=== PATIENT | male | born 1980 | race Caucasian/White ===

== ENCOUNTER 2018-04-27 10:05 | Emergency (ER) | payer OTHER ==
[~2018-04-27] VITALS: Ht 167.6 cm; Wt 73.0 kg
[2018-04-27 10:22] VITALS: BP 140/90
--- NOTE | 2018-04-27 10:30 | NUR ---
37Y/M BIB SELF WITH C/O PRODUCTIVE COUGH, SORE THROAT, BACK PAIN WHEN COUGHING X 6 DAYS. TOOK IBUPROFEN LAST NIGHT AND TERAFLU THIS MORNING WITH NO RELIEF. PT IS AAOX4, EVEN AND UNLABORED BREATHING, VSS AT THIS TIME, BED DOWN, LOCKED, BEDRAIL UP X 1, ER MD AWARE AND NOTIFIED. HX; DENIES RX; DENIES
--- NOTE | 2018-04-27 11:25 | NUR ---
Patient being evaluated by physician at bedside.
[2018-04-27 11:55] VITALS: BP 117/65
--- NOTE | 2018-04-27 11:55 | NUR ---
Patient discharged with v/s stable. Written and verbal after care instructions given and explained. Patient alert, oriented and verbalized understanding of instructions. Ambulatory with steady gait. All questions addressed prior to discharge. ID band removed. Patient advised to follow up with PMD. Rx of Promethazine given. Patient educated on indication of medication including possible reaction and side effects. Opportunity to ask questions provided and answered.
== END 2018-04-27 11:55 | disposition home or self-care (01) ==
LOC: MED 10:05
DX: J06.9 Acute upper respiratory infection, unspecified (principal)
CPT/HCPCS: 36415; 87804; 99283

== ENCOUNTER 2019-02-10 20:12 | Inpatient (IN) | payer OTHER ==
[~2019-02-10] VITALS: Ht 165.1 cm; Wt 72.6 kg
[2019-02-10 20:21] VITALS: BP 151/97
--- NOTE | 2019-02-10 20:24 | NUR ---
38Y/O M C/O LT-SIDED CP X TODAY THAT STARTED WHEN HE WAS WALKING. NO RADIATION OF PAIN. DENIES N/V. PAIN WORSE WITH DEEP BREATHING. DENIES SOB. PT. A/O X4 FOLLOWS COMMANDS; BREATHING UNLABORED AND SYMMETRICAL; NO SIGNS OF DISTRESS. PULSES +3. NO EDEMA; HR: 86. PAIN IS AN 8/10 CONTINUOUS ACUTE PAIN. PER PATIENT, " THE PAIN HAS LASTED FOR MORE THAN 1 HOUR". PATIENT ALSO TOOK HIS HTN MEDICATION THIS MORNING PRESCRIBED BUT HAS NOT TAKEN IS DIABETES MEDICATION. ERMD MADE AWARE OF STATUS. AT BEDSIDE. PLACED ON MONITOR. WILL CONTINUE TO MONITOR. HX- PRE-DM, HYPERCHOL, HTN RX- DOESN'T RECALL NKA
--- NOTE | 2019-02-10 20:27 | NUR ---
PT TAKEN TO BED 3
--- NOTE | 2019-02-10 21:02 | NUR ---
Dr. Polk examining patient.
[2019-02-10] MEDS ORDERED: NITROGLYCERIN 2% 1 GM PKT TP ONE (21:05)
[2019-02-10] MEDS ORDERED: MORPHINE SULFATE 4 MG/ML SYR IVP ONE (21:05)
--- NOTE | 2019-02-10 21:27 | NUR ---
X-Ray at bedside.
[2019-02-10 21:31] LABS: BASOPHILS % (AUTO) 0.7 % (0.0-2.0); EOSINOPHILS # (AUTO) 0.1 K/uL (0-0.4); EOSINOPHILS % (AUTO) 0.9 % (0.0-4.0); HEMATOCRIT 42.2 % (36-52); HEMOGLOBIN 14.2 g/dL (12.0-18.0); LYMPHOCYTES # (AUTO) 2.6 K/uL (2.0-11.5); LYMPHOCYTES % (AUTO) 38.3 % (20.5-51.1); MEAN CORPUSCULAR HEMOGLOBIN 30 pg (27-31); MEAN CORPUSCULAR HGB CONC 34 g/dL (33-37); MEAN CORPUSCULAR VOLUME 90.7 fL (80-94); MONOCYTES # (AUTO) 0.5 K/uL (0.8-1.0); MONOCYTES % (AUTO) 7.8 % (1.7-9.3); NEUTROPHILS # (AUTO) 3.6 K/uL (1.8-7.7); NEUTROPHILS % (AUTO) 52.3 % (42.2-75.2); PLATELET COUNT (AUTO) 253 K/uL (140-450); RED BLOOD CELL COUNT(AUTO) 4.66 MIL/uL (4.20-6.10); RED CELL DISTRIBUTION WIDTH 12.6 % (11.6-13.7); WHITE BLOOD COUNT (AUTO) 6.9 K/uL (4.8-10.8)
[2019-02-10 21:55] LABS: ANION GAP 14.6 (8-16); CARBON DIOXIDE 25.9 mmol/L (21-32); POTASSIUM 3.5 mmol/L (3.5-5.1)
[2019-02-10 21:56] LABS: ALBUMIN 3.8 g/dL (3.4-5.0); CREATININE 0.7 mg/dL (0.7-1.3); TOTAL BILIRUBIN 0.3 mg/dL (0.0-1.0)
--- NOTE | 2019-02-10 23:08 | NUR ---
PATIENT IS IN NO DISTRESS AT THIS TIME. WILL CONTINUE TO MONITOR. VSS.
[2019-02-10] MEDS ORDERED: BENA1TAB PO (23:26)
[2019-02-10] MEDS ORDERED: METF500T PO (23:26)
[2019-02-10] MEDS ORDERED: ATOR20TA40 PO (23:33)
[2019-02-10] MEDS ORDERED: VITD1000 PO (23:33)
--- NOTE | 2019-02-11 00:06 | NUR ---
PATIENT IN NO DISTRESS AT THIS TIME. WILL CONTINUE TO MONITOR.
--- NOTE | 2019-02-11 00:56 | NUR ---
RECEIVED PATIENT VIA GURNEY FROM ED. BEDSIDE REPORT GIVEN FROM ED NURSE BRIAN. PATIENT IS AMBULATORY. AOX4. NO SOB OR DISTRESS NOTED. IV ACCESS ON RIGHT AC 20 GAUGE SALINE LOCK, PATENT AND INTACT. MRSA SWAB DONE. SKIN INTACT. INITIAL ASSESSMENT DONE. VITAL SIGNS TAKEN. BOARD UPDATED. BELONGINGS CHECKED AND PUT IN BAG. ORIENT PATIENT TO ROOM, BED AND CALL LIGHT. ALL SAFETY PRECAUTIONS MET. CALL LIGHT WITHIN PATIENT REACH. WILL CONTINUE TO MONITOR.
--- NOTE | 2019-02-11 00:56 | NUR ---
Patient will be admitted to care of DR. CAMPBELL. Admited to TELE. Will go to room 106 B. Belongings list completed. Report to AUSTIN ARDON RN.
--- NOTE | 2019-02-11 01:37 | NUR ---
PAGED FOR DOCTOR SHANNAN. SPOKE TO DR. SULLIVAN. ORDERS RECEIVED AND WILL PUT IN ORDERS. WILL CONTINUE WITH ORDERS.
[2019-02-11] MEDS ORDERED: DEXTROSE 50% 50 ML SYR IVP PRN (01:50)
[2019-02-11] MEDS ORDERED: INSULIN LISPRO SLIDING SCALE 100 UNITS/ML VIAL SUBQ PRN (01:50)
--- NOTE | 2019-02-11 02:04 | NUR ---
LEFT VOICEMAIL MESSAGE FOR DONAVON, PER PATIENT REQUEST.
--- NOTE | 2019-02-11 02:08 | NUR ---
ROUNDS DONE. PATIENT SLEEPING IN BED COMFORTABLY. VISIBLE CHEST RISE AND FALL NOTED. WILL CONTINUE TO MONITOR PATIENT.
--- NOTE | 2019-02-11 04:25 | NUR ---
VITAL SIGNS DONE. VISIBLE CHEST RISE AND FALL NOTED. NO DISTRESS NOTED. WILL CONTINUE TO MONITOR PATIENT.
[2019-02-11 04:30] VITALS: BP 111/66
[2019-02-11 04:37] LABS: CHOL/HDL RATIO 1.9 (1-4.5)
[2019-02-11] MEDS ORDERED: PNEUMOCOCCAL VACCINE 23 MCG/0.5 ML VIAL IMVAC PRN (06:00)
[2019-02-11] MEDS ORDERED: INFLUENZA VACCINE QUAD 0.5 ML SYR IMVAC PRN (06:00)
[2019-02-11] MEDS: BLOOD GLUCOSE MONITORING 1 DEV DEV FS SCH ×2 (06:30→12:10)
--- NOTE | 2019-02-11 06:32 | NUR ---
BLOOD GLUCOSE OF 115. NO INSULIN COVERAGE NEEDED.
--- NOTE | 2019-02-11 07:20 | NUR ---
Report received from welder tool and die nurse. Pt in stable condition at this time. Call light in reach
--- NOTE | 2019-02-11 07:24 | NUR ---
PATIENT IN STABLE CONDITION. NO DISTRESS NOTED. CALL LIGHT WITHIN PATIENT REACH. ENDORSED TO AM SHIFT MEREDITH SHELL FOR CONTINUITY OF CARE.
[2019-02-11 07:28] LABS: BASOPHILS % (AUTO) 0.4 % (0.0-2.0); EOSINOPHILS % (AUTO) 0.3 % (0.0-4.0); HEMATOCRIT 41.6 % (36-52); LYMPHOCYTES # (AUTO) 1.6 K/uL (2.0-11.5); LYMPHOCYTES % (AUTO) 16.6 % (20.5-51.1); MEAN CORPUSCULAR HEMOGLOBIN 31 pg (27-31); MEAN CORPUSCULAR HGB CONC 34 g/dL (33-37); MEAN CORPUSCULAR VOLUME 90.8 fL (80-94); MONOCYTES # (AUTO) 0.6 K/uL (0.8-1.0); MONOCYTES % (AUTO) 6.1 % (1.7-9.3); NEUTROPHILS # (AUTO) 7.2 K/uL (1.8-7.7); NEUTROPHILS % (AUTO) 76.6 % (42.2-75.2); PLATELET COUNT (AUTO) 263 K/uL (140-450); RED BLOOD CELL COUNT(AUTO) 4.58 MIL/uL (4.20-6.10); RED CELL DISTRIBUTION WIDTH 12.9 % (11.6-13.7); WHITE BLOOD COUNT (AUTO) 9.5 K/uL (4.8-10.8)
[2019-02-11 07:51] LABS: ALBUMIN 3.9 g/dL (3.4-5.0); ANION GAP 14.4 (8-16); CARBON DIOXIDE 26.5 mmol/L (21-32); CREATININE 0.6 mg/dL (0.7-1.3); MAGNESIUM 1.6 mg/dL (1.8-2.4); PHOSPHORUS 2.4 mg/dL (2.5-4.9); POTASSIUM 3.9 mmol/L (3.5-5.1); TOTAL BILIRUBIN 0.3 mg/dL (0.0-1.0)
[2019-02-11 08:00] VITALS: BP 131/71
--- NOTE | 2019-02-11 08:05 | NUR ---
PATIENT HAS BEEN SCREENED AND CATEGORIZED MODERATE NUTRITION RISK. PATIENT WILL BE SEEN WITHIN 3-5 DAYS OF ADMISSION. 02/13/19 02/15/[address]
[2019-02-11] MEDS ORDERED: BENAZEPRIL PO SCH (09:00)
[2019-02-11] MEDS ORDERED: [UNRECOGNIZED DRUG - OTHER] PO SCH (09:00)
[2019-02-11] MEDS ORDERED: NON-FORMULARY ITEM (Atorvastatin Calcium 20 MG) PO SCH (09:00)
[2019-02-11] MEDS ORDERED: CHOLECALCIFEROL 1,000 IU TAB PO SCH (09:00)
[2019-02-11] MEDS ORDERED: metFORMIN 500 MG TAB PO SCH (09:00)
[2019-02-11] MEDS ORDERED: HYDROCHLOROTHIAZIDE PO SCH (09:00)
--- NOTE | 2019-02-11 10:00 | NUR ---
Pt is in bed. by bedside. Pt is instable condition. Call light in reach
[2019-02-11] MEDS ORDERED: BENAZEPRIL HCL 20 MG PO SCH (11:00)
--- NOTE | 2019-02-11 13:00 | NUR ---
Pt was discharged today at 1300. Pt IV line was removed. Catheter was intact. Pt walked with steady gait. All belongings with patient. Skin intact. No complains of pain upon discharge. Vitals signs were WNL. Pt's accompanied pt to car. Discharge instructions given to patient. Requested pt to follow up with PCP.
--- NOTE | 2019-02-11 15:18 | NUR ---
Follow up appointment arranged to see PCP Dr. Isaias Montenegro on 02/20/19 at 3:35 p.m. Clinic # address: [address] [place] [id number]. Appointment schedule given to Mitzy Webster of pt.
[2019-02-11] MEDS ORDERED: ATORVASTATIN 20 MG TAB PO SCH (21:00)
[2019-02-12] MEDS ORDERED: HYDROCHLOROTHIAZIDE 25 MG TAB PO SCH (09:00)
== END 2019-02-11 13:05 | disposition home or self-care (01) | DRG 241 ==
LOC: MED 20:12 → MTU 02-11 00:22
PROVIDERS: ADMIT Internal Medicine Pulmonary Disease; ATTEND Internal Medicine Pulmonary Disease
PROC: 3E02340 Introduction of Influenza Vaccine into Muscle, Percutaneous Approach (ICD-10-PCS; principal; 2019-02-11)
PROC: 3E0234Z Introduction of Serum, Toxoid and Vaccine into Muscle, Percutaneous Approach (ICD-10-PCS; 2019-02-11)
DX: K29.70 Gastritis, unspecified, without bleeding (principal); E87.1 Hypo-osmolality and hyponatremia; E11.9 Type 2 diabetes mellitus without complications; I10 Essential (primary) hypertension; E78.5 Hyperlipidemia, unspecified; K20.9 Esophagitis, unspecified; F10.20 Alcohol dependence, uncomplicated; Y90.9 Presence of alcohol in blood, level not specified; Z23 Encounter for immunization; Z79.84 Long term (current) use of oral hypoglycemic drugs; Z79.899 Other long term (current) drug therapy; Z83.3 Family history of diabetes mellitus
CPT/HCPCS: 36415; 71045; 80053; 82550; 82553; 82948; 83735; 83880; 84100; 84484; 85025; 85379; 87081; 90732; 93005; 96374; 99291; J1815; J2270; Q0092